=== PATIENT | male | born 1950 | race Caucasian/White ===

== ENCOUNTER 2020-03-17 14:48 | Outpatient (REF) | payer MEDICARE, SELFPAY ==
[2020-03-19 14:47] LABS: FIT Int Ctl YES; FIT1 POSITIVE (NEGATIVE); FIT2 POSITIVE (NEGATIVE)
== END 2020-03-17 14:49 | disposition home or self-care (01) ==
LOC: CF 14:48
PROVIDERS: Visit Provider Family Medicine
DX: D50.9 Iron deficiency anemia, unspecified (principal)
CPT/HCPCS: 82274

== ENCOUNTER 2020-04-22 19:24 | Emergency (ER) | payer MEDICARE, SELFPAY ==
[2020-04-22 19:41] VITALS: BP 109/55; BP 140/78; PULSE 74; PULSE 78; RESP 16; TEMP 36.5; O2SAT 97; O2SAT 98; BMI 30.9
--- NOTE | 2020-04-22 20:07 | XR_ITS ---
EXAMINATION: XR CHEST CLINICAL INFORMATION: Chest pain COMPARISON: 11/08/2019 TECHNIQUE: Frontal view of the chest was obtained. FINDINGS: Cardiac leads overlie the chest. The lungs are well expanded. There is no focal consolidation, edema, or effusion. No pneumothorax. The cardiomediastinal silhouette is within normal limits, with a calcified aorta. No acute osseous abnormality. XR/XR chest 1V IMPRESSION: No acute pulmonary findings.
--- NOTE | 2020-04-22 20:07 | ECG_ITS ---
Test Reason : CHEST PAIN Blood Pressure : / mmHG Vent. Rate : 071 BPM Atrial Rate : 071 BPM P-R Int : 268 ms QRS Dur : 084 ms QT Int : 446 ms P-R-T Axes : 049 -40 -14 degrees QTc Int : 484 ms Sinus rhythm with 1st degree A-V block Left axis deviation Low voltage QRS Inferior infarct , age undetermined Cannot rule out Anterior infarct (cited on or before 09-NOV-2019) Abnormal ECG When compared with ECG of 22-APR-2020 20:12, No significant change was found Referred By: Tyler Rogel Electronically Signed By:MARTA HANNA MD
[2020-04-22 20:55] LABS: Basophils Percent Auto 0.3 % (0-2); Eosinophils Percent Auto 3.4 % (0-4); MANUAL DIFF FLAG SCAN; Mean Corpuscular Volume 69.9 fL (80-98); Neutrophils Percent Auto 65.7 % (45-73); SCAN SMEAR FLAG 1
[2020-04-22 20:59] LABS: Eosinophils Absolute Auto 0.3 X10*3/uL (0.0-0.4); Hematocrit 34.1 % (42-52); Hemoglobin 10.1 g/dl (14.0-18.0); Imm Gran Abs Auto 0.05 X10*3/uL (0.00-0.03); Imm Gran Pct Auto 0.7 % (0.0-0.4); Lymphocytes Absolute Auto 1.6 X10*3/uL (1.2-4.9); Lymphocytes Percent Auto 21.1 % (20-40); Mean Corpuscular HGB Conc 29.6 g/dl (31.0-36.0); Mean Corpuscular Hemoglobin 20.7 pg (27.0-33.0); Monocytes Absolute Auto 0.7 X10*3/uL (0.1-1.2); Monocytes Percent Auto 8.8 % (2-11); Platelet Count 203 X10*3/uL (160-400); Red Blood Count 4.88 X10*6/uL (4.60-5.80); Red Cell Distribution Width 19.2 % (11.0-16.0); White Blood Count 7.5 X10*3/uL (4.8-10.8)
[2020-04-22 21:01] LABS: PLT ABN DIST 1
[2020-04-22 21:12] LABS: Anion Gap 19 (12-20); Blood Urea Nitrogen 61 mg/dL (9-16); Calcium 9.1 mg/dL (8.4-10.2); Carbon Dioxide 30 mmol/L (22-29); Chloride 97 mmol/L (96-108); Creatinine Clr Calc Pharmacy 29.1; Estimated Glomerular Filt Rate 27; Glucose Random 171 mg/dL (60-115); Potassium 5.1 mmol/l (3.3-5.1); Sodium 141 mmol/L (135-145)
[2020-04-22 21:17] LABS: SLIDE REVIEW VERIFIED
[2020-04-22 21:18] LABS: Troponin-I High Sensitivity 22.2 ng/L (<3.5-35.0)
--- NOTE | 2020-04-22 21:29 | ED_ITS ---
HPI - Chest Pain General Chief Complaint: Chest Pain Stated Complaint: anxiety Time Seen by Provider: 04/22/20 20:07 Source: patient Mode of arrival: EMS Limitations: no limitations History of Present Illness HPI narrative: Patient with significant cardiac history with history of GA on external cardiac defibrillator for last few months noticed pain on the right side sharp intermittent pain which happened before in the past now was happening more often for last 12 hours without any shortness of breath pain gets worse on deep inspiration and palpation patient very anxious also patient denies any left-sided chest pain no shortness of breath this pain is not similar to his previous heart attack patient. Patient denied any nausea/vomiting MD complaint: chest pain Pertinent past history: coronary artery disease and prior GA Onset (ago): hour(s) (12) Timing of current episode: episodic Prior episodes: Yes Onset: during rest Pain radiation: none Quality: sharp Relieving factors: nothing Exacerbating factors: inspiration, palpation and movement Related Data Previous Rx's Medication Instructions Recorded lorazepam [Ativan] 0.5 mg PO BEDTIME PRN #10 tab 04/22/20 Allergies Allergy/AdvReac Type Severity Reaction Status Date / Time No Known Allergies Allergy Unknown Unverified 02/05/20 16:17 Review of Systems Review of Systems: REVIEW OF SYSTEMS: Pertinent positives and negatives are stated above in the history. GEN: no fevers, chills, fatigue anxiety + HEENT: no nasal congestion, sore throat, ear pain NEURO: no headache, dizziness, focal weakness PULM: no cough, shortness of breath CV: no palpitations, LE edema ABD: no abdominal pain, nausea, vomiting, diarrhea : no dysuria, urgency, frequency SKIN: no rash ROS otherwise negative x 10 PMFSH Past Medical History Medical History Anemia Diabetes Myocardial infarct Social History Social History Alcohol intake: never Smoking Status: Never smoker Use of substances other than those prescribed or required for medical reasons: No Advance Directives: No Advance Directives Information Provided: Yes Physical Exam Vital Signs: Vital Signs: Last Vital Signs Temp 97.7 F 04/22/20 19:41 Pulse 74 04/22/20 19:41 Resp 16 04/22/20 19:41 BP 109/55 L 04/22/20 19:41 Pulse Ox 97 04/22/20 19:41 Body Mass Index 30.9 VITAL SIGNS: Reviewed. GENERAL: Well developed, well nourished, in no acute distress. Very anxious HEAD: Normocephalic/atraumatic, EYES: PERRLA No pallor/icterus noted OROPHARYNX: Oral mucosa moist no oral lesions NECK: Supple, no adenopathy LUNGS: Normal breath sounds. No adventitious sounds or accessory muscle use local tenderness right mid chest CARDIOVASCULAR: Regular rate and rhythm without noted murmurs, no JVD r external pacemaker in place No lower extremity edema. ABDOMEN: Soft, non-tender, non-distended with normal bowel sounds. No rigidity. No guarding. No palpable masses or hernias noted MUSCULOSKELETAL: No tenderness, deformities, EXTREMITIES: No cyanosis or edema. SKIN: no rashes, ulcerations, jaundice, pallor, NEUROLOGIC: Alert and oriented x 3. Strength and sensation to light touch were grossly intact normal speech MDM - Chest Pain MDM Narrative Medical decision making narrative: Patient atypical sharp right-sided chest pain reproducible by local palpation no cardiac arrhythmias noticed in the ER patient very anxious on arrival cardiac enzymes are stable no acute EKG changes will discharge patient home to be followed up with his primary care doctor/admitting counselor patient with chronic renal disease with stable creatinine Differential Diagnosis Differential diagnosis: Likely pneumothorax, unstable angina pectoris, atypical chest pain and costochondritis Medical Records Data Attestation: I reviewed the patient's medical records. Lab Data Attestation: I reviewed the patient's lab results. Result diagrams: 04/22/20 20:37 04/22/20 20:37 Labs: Lab Results 04/22/20 04/22/20 04/22/20 Range/Units 20:37 20:37 20:37 WBC 7.5 (4.8-10.8) X10*3/uL RBC 4.88 (4.60-5.80) X10*6/uL Hgb 10.1 L (14.0-18.0) g/dl Hct 34.1 L (42-52) % MCV 69.9 L (80-98) fL MCH 20.7 L (27.0-33.0) pg MCHC 29.6 L (31.0-36.0) g/dl RDW 19.2 H (11.0-16.0) % Plt Count 203 (160-400) X10*3/uL MPV TNP Immature Gran % (Auto) 0.7 H (0.0-0.4) % Neut % (Auto) 65.7 (45-73) % Lymph % (Auto) 21.1 (20-40) % [place] % (Auto) 8.8 (2-11) % Eos % (Auto) 3.4 (0-4) % Baso % (Auto) 0.3 (0-2) % Lymph # (Auto) 1.6 (1.2-4.9) X10*3/uL [place] # (Auto) 0.7 (0.1-1.2) X10*3/uL Eos # (Auto) 0.3 (0.0-0.4) X10*3/uL Baso # (Auto) 0.0 (0.0-0.2) X10*3/uL Abs Immat Gran (auto) 0.05 H (0.00-0.03) X10*3/uL Absolute Neuts (auto) 5.0 (2.0-8.3) X10*3/uL Absolute Nucleated RBC 0.000 (0.0-0.012) X10*3/uL Nucleated RBC % (auto) 0.0 (0.0-0.2) /100WBC Smear Tech's Comments VERIFIED Hold Blue Top SEE NOTE Sodium 141 (135-145) mmol/L Potassium 5.1 (3.3-5.1) mmol/l Chloride 97 (96-108) mmol/L Carbon Dioxide 30 H (22-29) mmol/L Anion Gap 19 (12-20) BUN 61 H (9-16) mg/dL Creatinine 2.42 H (0.5-1.4) mg/dL Estim Creat Clear Calc 29.1 Estimated GFR 27 Random Glucose 171 H (60-115) mg/dL Calcium 9.1 (8.4-10.2) mg/dL Troponin I High Sens (<3.5-35.0) ng/L 04/22/20 Range/Units 20:37 WBC (4.8-10.8) X10*3/uL RBC (4.60-5.80) X10*6/uL Hgb (14.0-18.0) g/dl Hct (42-52) % MCV (80-98) fL MCH (27.0-33.0) pg MCHC (31.0-36.0) g/dl RDW (11.0-16.0) % Plt Count (160-400) X10*3/uL MPV Immature Gran % (Auto) (0.0-0.4) % Neut % (Auto) (45-73) % Lymph % (Auto) (20-40) % [place] % (Auto) (2-11) % Eos % (Auto) (0-4) % Baso % (Auto) (0-2) % Lymph # (Auto) (1.2-4.9) X10*3/uL [place] # (Auto) (0.1-1.2) X10*3/uL Eos # (Auto) (0.0-0.4) X10*3/uL Baso # (Auto) (0.0-0.2) X10*3/uL Abs Immat Gran (auto) (0.00-0.03) X10*3/uL Absolute Neuts (auto) (2.0-8.3) X10*3/uL Absolute Nucleated RBC (0.0-0.012) X10*3/uL Nucleated RBC % (auto) (0.0-0.2) /100WBC Smear Tech's Comments Hold Blue Top Sodium (135-145) mmol/L Potassium (3.3-5.1) mmol/l Chloride (96-108) mmol/L Carbon Dioxide (22-29) mmol/L Anion Gap (12-20) BUN (9-16) mg/dL Creatinine (0.5-1.4) mg/dL Estim Creat Clear Calc Estimated GFR Random Glucose (60-115) mg/dL Calcium (8.4-10.2) mg/dL Troponin I High Sens 22.2 (<3.5-35.0) ng/L ECG Data ECG #1: Attestation: I personally reviewed and interpreted this ECG as follows: Interpretation: Normal sinus rhythm heart rate of 71 first-degree heart block P are interval increased to [address] T wave changes. 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
[2020-04-22] MEDS: LORazepam 1 MG TABLET PO (22:51)
== END 2020-04-22 23:00 | disposition home or self-care (01) ==
PROVIDERS: Emergency Provider Internal Medicine; PCP Family Medicine
DX: R07.9 Chest pain, unspecified (principal); F41.9 Anxiety disorder, unspecified; E11.9 Type 2 diabetes mellitus without complications; I25.2 Old myocardial infarction
CPT/HCPCS: 36415; 71045; 80048; 84484; 85025; 93005; 99284

== ENCOUNTER 2020-08-25 09:14 | Emergency (ER) | payer MEDICARE, SELFPAY ==
[2020-08-25 09:18] VITALS: BP 135/67; BP 141/92; PULSE 78; PULSE 80; RESP 18; TEMP 37; O2SAT 98; BMI 31.6
--- NOTE | 2020-08-25 09:22 | ECG_ITS ---
Test Reason : OVERDOSE Blood Pressure : / mmHG Vent. Rate : 079 BPM Atrial Rate : 079 BPM P-R Int : 292 ms QRS Dur : 096 ms QT Int : 412 ms P-R-T Axes : 074 -46 002 degrees QTc Int : 472 ms Sinus rhythm with 1st degree A-V block Left axis deviation Low voltage QRS Inferior infarct (cited on or before 09-NOV-2019) Abnormal ECG When compared with ECG of 22-APR-2020 20:12, Minimal criteria for Anterior infarct are no longer Present Referred By: Savannah Dickens Electronically Signed By:MARTA HANNA MD
[2020-08-25 10:05] LABS: MANUAL DIFF FLAG NO
[2020-08-25 10:06] LABS: Basophils Percent Auto 0.2 % (0-2); Eosinophils Absolute Auto 0.2 X10*3/uL (0.0-0.4); Eosinophils Percent Auto 2.7 % (0-4); Hematocrit 39.5 % (42-52); Hemoglobin 11.7 g/dl (14.0-18.0); Imm Gran Abs Auto 0.01 X10*3/uL (0.00-0.03); Imm Gran Pct Auto 0.2 % (0.0-0.4); Lymphocytes Absolute Auto 0.9 X10*3/uL (1.2-4.9); Lymphocytes Percent Auto 13.8 % (20-40); Mean Corpuscular HGB Conc 29.6 g/dl (31.0-36.0); Mean Corpuscular Hemoglobin 21.2 pg (27.0-33.0); Mean Corpuscular Volume 71.7 fL (80-98); Mean Platelet Volume 9.7 fL (9.4-12.4); Monocytes Absolute Auto 0.4 X10*3/uL (0.1-1.2); Monocytes Percent Auto 5.3 % (2-11); Neutrophils Absolute Auto 5.2 X10*3/uL (2.0-8.3); Neutrophils Percent Auto 77.8 % (45-73); Platelet Count 159 X10*3/uL (160-400); Red Blood Count 5.51 X10*6/uL (4.60-5.80); Red Cell Distribution Width 16.1 % (11.0-16.0); White Blood Count 6.6 X10*3/uL (4.8-10.8)
[2020-08-25 10:11] LABS: INTERNATIONAL NORM RATIO 1.2 (0.9-1.1); Prothrombin Time 14.4 SEC (10.8-13.0)
[2020-08-25 10:33] VITALS: BP 141/74; PULSE 78; RESP 18; O2SAT 97
[2020-08-25 10:33] LABS: Ethanol < 10 mg/dL
[2020-08-25 10:39] LABS: Acetone, serum QL Negative (Negative)
[2020-08-25 10:52] LABS: Alanine Aminotransferase 17 U/L (0-40); Albumin Level 4.2 g/dL (3.5-5.0); Alkaline Phosphatase 130 U/L (39-117); Anion Gap 14 (12-20); Aspartate Amino Transferase 19 U/L (5-37); Bilirubin Direct < 0.2 mg/dL (0.0-0.5); Bilirubin Total 0.2 mg/dL (0.0-1.0); Carbon Dioxide 30 mmol/L (22-29); Chloride 102 mmol/L (96-108); Creatinine Clr Calc Pharmacy 30.4; Estimated Glomerular Filt Rate 28; Glucose Random 186 mg/dL (60-115); Potassium 4.6 mmol/L (3.3-5.1); Sodium 141 mmol/L (135-145); Total Protein 7.3 g/dL (6.5-8.0)
[2020-08-25 10:55] LABS: Blood Urea Nitrogen 48 mg/dL (9-16); Calcium 9.5 mg/dL (8.4-10.2)
--- NOTE | 2020-08-25 11:49 | ED.OVERDOSE ---
HPI - Overdose General Chief Complaint: Overdose Stated Complaint: ACCIDENTAL OD OF HUMABIODUN @ 0830 THIS AM Time Seen by Provider: 08/25/20 09:19 Source: patient Mode of arrival: ambulatory Limitations: no limitations History of Present Illness HPI Narrative: 70-year-old male with a past medical history of coronary artery disease, myocardial infarction, hypothyroidism, anemia and diabetes currently on short-acting Glargine and long-acting Lispro insulin presenting to the ED after accidental overdose with his short-acting Lispro insulin that occurred prior to arrival. He reports that his blood sugar was in the 200s and he was supposed to take 4-6 units from the sliding-scale of Lispro instead he reports he took 51 units. Then he realized that he took the wrong insulin and called EMS. When EMS arrived the patient's blood glucose level was 290. When patient arrived here in the emergency department the patient's blood glucose was 229. Patient denies any other symptoms complaints or concerns at this time. Denies any SI/HI/auditory visual hallucinations or thoughts of self injury. MD complaint: accidental overdose Onset (ago): minute(s) (Prior to arrival) Related Data Previous Rx's Medication Instructions Recorded lorazepam [Ativan] 0.5 mg PO BEDTIME PRN #10 tab 04/22/20 Allergies Allergy/AdvReac Type Severity Reaction Status Date / Time No Known Allergies Allergy Unknown Unverified 02/05/20 16:17 Review of Systems Review of Systems: Constitutional : No Fever, No Chills ENT/Mouth : No Ear Pain, No Nasal Congestion, No sore throat Eyes: No Eye Pain, No Swelling, No Redness Cardiovascular : No Chest Pain, No SOB Respiratory : No Cough, No Sputum, No Dyspnea Gastrointestinal : No ingestions, No Nausea, No Vomiting, No Diarrhea, No Hematochezia, No Melena Genitourinary : No Dysuria, No Urinary Frequency, No Hematuria Musculoskeletal : No Myalgias Skin : No Skin Lesions, No rash Neuro : No Weakness, No Numbness, No Paresthesias, No Dizziness, No Headache Psych : No Anxiety, No Depression, No SI, No No thoughts of self injury, No HI, No AVH, Heme/Lymph: No Lymphadenopathy Endocrine : No Polyuria, No Polydipsia Yes all other systems are reviewed and are negative [facility] Past Medical History Attestation statement: The following information was validated with the patient. Medical History Anemia Diabetes Myocardial infarct Social History Social History Alcohol intake: never Smoking Status: Former smoker Smoked in Last 30 Days: No Use of substances other than those prescribed or required for medical reasons: No Advance Directives: Yes Advance Directives Information Provided: Yes Advance Directives on File: No Physical Exam Vital Signs: Vital Signs: Last Vital Signs Temp 98.6 F 08/25/20 09:18 Pulse 78 08/25/20 10:33 Resp 18 08/25/20 10:33 BP 141/74 H 08/25/20 10:33 Pulse Ox 97 08/25/20 10:33 Body Mass Index 31.6 vital signs have been reviewed as normal and appeared to be correct. Blood pressure hypertensive 141/74. Heart rate normal. Respiration rate normal. Temperature normal. Oxygen saturation normal. Appearance: Alert. Oriented X3. No acute distress. Head: Normal external exam. Normocephalic. Atraumatic. No [place] signs noted. No raccoon eyes noted Eyes: PERRLA. EOMI. Conjunctiva and sclera normal. Eyelids normal. ENT: EAC normal. TM's Normal. Pharynx normal. Uvula midline. Moist mucous membranes. No trismus noted. No drooling noted. No muffled voice noted. Neck: Normal inspection. Neck supple. FROM. No adenopathy. Thyroid Normal. No meningeal signs. No neck mass noted. CVS: Normal heart rate and rhythm. Heart sound normal. No murmurs noted. Pulses normal throughout. Respiratory: No respiratory distress. Painless inspiration. Breath sounds normal. No wheezes/rales/rhonchi noted. Chest nontender. No accessory muscle usage noted or decreased air movement noted. Abdomen: Soft and nontender. Bowel sounds normal in all 4 quadrants. No distention noted. No organomegaly noted. No visible injury noted. Back: No CVA tenderness. Full range of motion noted. Skin: Skin warm and dry. Normal skin color. Normal skin turgor. No rashes/lesions/lacerations noted. Extremities: No lower extremity edema. Extremities exhibit normal range of motion. Extremities nontender. Neuro: Oriented X 3. No motor deficit. No sensory deficit. Reflexes normal. Psych: Appearance grossly normal, well-kept, mental status normal, speech and movement normal, speech clear, patient has a normal affect. Is cooperative. Normal thought process. Normal thought content. Normal good insight. Judgment good. Course Course Course Narrative: 9:25am 70-year-old male with a past medical history of diabetes currently on short-acting Glargine and long-acting Lispro insulin presenting to the ED after accidental overdose with his short-acting Lispro insulin that occurred prior to arrival. He took 51 units instead of 4-6 units. Denies taking the long-acting insulin Lispro. Denies any SI/HI/auditory visual hallucinations thoughts of self-injury. - on exam patient is alert and oriented x3. Not in any acute distress. Vital signs are stable within normal limits. No focal neuro deficits are noted. Lungs clear to auscultation. CV RRR. Abdomen soft and nontender. No lower extremity pitting edema or calf tenderness noted. - Plan: Labs, then checked the patient's blood glucose every 30 minutes to an hour for approximately 6 hours and treat as needed. Reevaluation(s) Reevaluation #1: - patient's blood glucose has been fluctuating since he has been here we have been giving him p.o. orange juice/sandwiches. - otherwise labs obtained and patient with a mild baseline anemia similar compared to prior. Elevated BUN and creatinine which is similar when compared to prior. Alkaline phosphate 130. Otherwise all other labs are within normal limits. - patient requesting all his medications from home he brought his list therefore ordered at this time. - will continue to monitor until approximately 15:00pm. - patient understands agrees with this plan. Time: 12:34 Reevaluation #2: - blood glucose at this time is 121. Patient has been eating well. It has been 6 hours or longer since the patient took his short-acting insulin therefore at this time it is safe to discharge the patient I instructed patient to return if any new or worsening symptoms to follow up with primary care provider. Patient understands agrees the plan. Time: 14:33 MDM - Overdose Medical Records Attestation: I reviewed the patient's medical records. Lab Data Attestation: I reviewed the patient's lab results. Result diagrams: 08/25/20 10:00 08/25/20 10:00 Labs: Lab Results 08/25/20 08/25/20 08/25/20 Range/Units 09:19 09:44 10:00 WBC 6.6 (4.8-10.8) X10*3/uL RBC 5.51 (4.60-5.80) X10*6/uL Hgb 11.7 L (14.0-18.0) g/dl Hct 39.5 L (42-52) % MCV 71.7 L (80-98) fL MCH 21.2 L (27.0-33.0) pg MCHC 29.6 L (31.0-36.0) g/dl RDW 16.1 H (11.0-16.0) % Plt Count 159 L (160-400) X10*3/uL MPV 9.7 (9.4-12.4) fL Immature Gran % (Auto) 0.2 (0.0-0.4) % Neut % (Auto) 77.8 H (45-73) % Lymph % (Auto) 13.8 L (20-40) % [place] % (Auto) 5.3 (2-11) % Eos % (Auto) 2.7 (0-4) % Baso % (Auto) 0.2 (0-2) % Lymph # (Auto) 0.9 L (1.2-4.9) X10*3/uL [place] # (Auto) 0.4 (0.1-1.2) X10*3/uL Eos # (Auto) 0.2 (0.0-0.4) X10*3/uL Baso # (Auto) 0.0 (0.0-0.2) X10*3/uL Abs Immat Gran (auto) 0.01 (0.00-0.03) X10*3/uL Absolute Neuts (auto) 5.2 (2.0-8.3) X10*3/uL Absolute Nucleated RBC 0.000 (0.0-0.012) X10*3/uL Nucleated RBC % (auto) 0.0 (0.0-0.2) /100WBC Hold Purple Top PT (10.8-13.0) SEC INR (0.9-1.1) Sodium (135-145) mmol/L Potassium (3.3-5.1) mmol/L Chloride (96-108) mmol/L Carbon Dioxide (22-29) mmol/L Anion Gap (12-20) BUN (9-16) mg/dL Creatinine (0.5-1.4) mg/dL Estim Creat Clear Calc Estimated GFR POC Glucose 229 H 384 H* (60-115) mg/dL Random Glucose (60-115) mg/dL Calcium (8.4-10.2) mg/dL Magnesium (1.6-2.6) mg/dL Total Bilirubin (0.0-1.0) mg/dL Direct Bilirubin (0.0-0.5) mg/dL AST (5-37) U/L ALT (0-40) U/L Alkaline Phosphatase (39-117) U/L Total Protein (6.5-8.0) g/dL Albumin (3.5-5.0) g/dL Ethyl Alcohol mg/dL Acetone, Qual (Negative) 08/25/20 08/25/20 08/25/20 Range/Units 10:00 10:00 10:00 WBC (4.8-10.8) X10*3/uL RBC (4.60-5.80) X10*6/uL Hgb (14.0-18.0) g/dl Hct (42-52) % MCV (80-98) fL MCH (27.0-33.0) pg MCHC (31.0-36.0) g/dl RDW (11.0-16.0) % Plt Count (160-400) X10*3/uL MPV (9.4-12.4) fL Immature Gran % (Auto) (0.0-0.4) % Neut % (Auto) (45-73) % Lymph % (Auto) (20-40) % [place] % (Auto) (2-11) % Eos % (Auto) (0-4) % Baso % (Auto) (0-2) % Lymph # (Auto) (1.2-4.9) X10*3/uL [place] # (Auto) (0.1-1.2) X10*3/uL Eos # (Auto) (0.0-0.4) X10*3/uL Baso # (Auto) (0.0-0.2) X10*3/uL Abs Immat Gran (auto) (0.00-0.03) X10*3/uL Absolute Neuts (auto) (2.0-8.3) X10*3/uL Absolute Nucleated RBC (0.0-0.012) X10*3/uL Nucleated RBC % (auto) (0.0-0.2) /100WBC Hold Purple Top SEE NOTE PT 14.4 H (10.8-13.0) SEC INR 1.2 H (0.9-1.1) Sodium 141 (135-145) mmol/L Potassium 4.6 (3.3-5.1) mmol/L Chloride 102 (96-108) mmol/L Carbon Dioxide 30 H (22-29) mmol/L Anion Gap 14 (12-20) BUN 48 H (9-16) mg/dL Creatinine 2.31 H (0.5-1.4) mg/dL Estim Creat Clear Calc 30.4 Estimated GFR 28 POC Glucose (60-115) mg/dL Random Glucose 186 H (60-115) mg/dL Calcium 9.5 (8.4-10.2) mg/dL Magnesium 2.0 (1.6-2.6) mg/dL Total Bilirubin 0.2 (0.0-1.0) mg/dL Direct Bilirubin < 0.2 (0.0-0.5) mg/dL AST 19 (5-37) U/L ALT 17 (0-40) U/L Alkaline Phosphatase 130 H (39-117) U/L Total Protein 7.3 (6.5-8.0) g/dL Albumin 4.2 (3.5-5.0) g/dL Ethyl Alcohol mg/dL Acetone, Qual Negative (Negative) 08/25/20 08/25/20 08/25/20 Range/Units 10:00 10:27 11:01 WBC (4.8-10.8) X10*3/uL RBC (4.60-5.80) X10*6/uL Hgb (14.0-18.0) g/dl Hct (42-52) % MCV (80-98) fL MCH (27.0-33.0) pg MCHC (31.0-36.0) g/dl RDW (11.0-16.0) % Plt Count (160-400) X10*3/uL MPV (9.4-12.4) fL Immature Gran % (Auto) (0.0-0.4) % Neut % (Auto) (45-73) % Lymph % (Auto) (20-40) % [place] % (Auto) (2-11) % Eos % (Auto) (0-4) % Baso % (Auto) (0-2) % Lymph # (Auto) (1.2-4.9) X10*3/uL [place] # (Auto) (0.1-1.2) X10*3/uL Eos # (Auto) (0.0-0.4) X10*3/uL Baso # (Auto) (0.0-0.2) X10*3/uL Abs Immat Gran (auto) (0.00-0.03) X10*3/uL Absolute Neuts (auto) (2.0-8.3) X10*3/uL Absolute Nucleated RBC (0.0-0.012) X10*3/uL Nucleated RBC % (auto) (0.0-0.2) /100WBC Hold Purple Top PT (10.8-13.0) SEC INR (0.9-1.1) Sodium (135-145) mmol/L Potassium (3.3-5.1) mmol/L Chloride (96-108) mmol/L Carbon Dioxide (22-29) mmol/L Anion Gap (12-20) BUN (9-16) mg/dL Creatinine (0.5-1.4) mg/dL Estim Creat Clear Calc Estimated GFR POC Glucose 193 H 130 H (60-115) mg/dL Random Glucose (60-115) mg/dL Calcium (8.4-10.2) mg/dL Magnesium (1.6-2.6) mg/dL Total Bilirubin (0.0-1.0) mg/dL Direct Bilirubin (0.0-0.5) mg/dL AST (5-37) U/L ALT (0-40) U/L Alkaline Phosphatase (39-117) U/L Total Protein (6.5-8.0) g/dL Albumin (3.5-5.0) g/dL Ethyl Alcohol < 10 mg/dL Acetone, Qual (Negative) 08/25/20 08/25/20 08/25/20 Range/Units 12:46 13:16 13:54 WBC (4.8-10.8) X10*3/uL RBC (4.60-5.80) X10*6/uL Hgb (14.0-18.0) g/dl Hct (42-52) % MCV (80-98) fL MCH (27.0-33.0) pg MCHC (31.0-36.0) g/dl RDW (11.0-16.0) % Plt Count (160-400) X10*3/uL MPV (9.4-12.4) fL Immature Gran % (Auto) (0.0-0.4) % Neut % (Auto) (45-73) % Lymph % (Auto) (20-40) % [place] % (Auto) (2-11) % Eos % (Auto) (0-4) % Baso % (Auto) (0-2) % Lymph # (Auto) (1.2-4.9) X10*3/uL [place] # (Auto) (0.1-1.2) X10*3/uL Eos # (Auto) (0.0-0.4) X10*3/uL Baso # (Auto) (0.0-0.2) X10*3/uL Abs Immat Gran (auto) (0.00-0.03) X10*3/uL Absolute Neuts (auto) (2.0-8.3) X10*3/uL Absolute Nucleated RBC (0.0-0.012) X10*3/uL Nucleated RBC % (auto) (0.0-0.2) /100WBC Hold Purple Top PT (10.8-13.0) SEC INR (0.9-1.1) Sodium (135-145) mmol/L Potassium (3.3-5.1) mmol/L Chloride (96-108) mmol/L Carbon Dioxide (22-29) mmol/L Anion Gap (12-20) BUN (9-16) mg/dL Creatinine (0.5-1.4) mg/dL Estim Creat Clear Calc Estimated GFR POC Glucose 88 97 121 H (60-115) mg/dL Random Glucose (60-115) mg/dL Calcium (8.4-10.2) mg/dL Magnesium (1.6-2.6) mg/dL Total Bilirubin (0.0-1.0) mg/dL Direct Bilirubin (0.0-0.5) mg/dL AST (5-37) U/L ALT (0-40) U/L Alkaline Phosphatase (39-117) U/L Total Protein (6.5-8.0) g/dL Albumin (3.5-5.0) g/dL Ethyl Alcohol mg/dL Acetone, Qual (Negative) ECG Data Attestation: I personally reviewed and interpreted this ECG as follows: ECG interpretation date: 08/25/20 ECG interpretation time: 09:19 Interpretation: Sinus rhythm with 1st degree AV block with a ventricular rate of 79 with left axis deviation with Q-waves noted in III/aVF/V1 otherwise no acute ischemic changes noted. Similar compared to prior EKG on 04/22/2020 Critical Care Time Critical Care Time Critical Care Time: Yes Total Critical Care Time: 60 Attestation: I personally attest to this time spent taking care of the patient Discharge Plan Discharge Clinical Impression: Overdose of insulin, Accidental overdose Patient Disposition: Home, Self-Care Instructions: Hypoglycemia in a Person with Diabetes (ED), Medication Safety for Older Adults (ED) Prescriptions: No Action lorazepam [Ativan] 0.5 mg tablet 0.5 mg PO BEDTIME PRN (Reason: anxiety) Qty: 10 RF: 0 Referrals: Juana Meraz MD [Primary Care Provider] - 2 days Print Language: Russian
[2020-08-25] MEDS: Isosorbide Mononitrate 30 MG TAB.ER.24H PO (12:38)
[2020-08-25] MEDS: Torsemide 20 MG TABLET 30 MG PO (12:38)
[2020-08-25] MEDS: Clopidogrel Bisulfate 75 MG TABLET PO (12:38)
[2020-08-25] MEDS: Aspirin 81 MG TAB.CHEW PO (12:38)
[2020-08-25] MEDS: Omeprazole 20 MG CAPSULE.DR PO (12:38)
[2020-08-25] MEDS: clonazePAM 0.5 MG TABLET PO (12:38)
[2020-08-25] MEDS: Thiamine HCL 100 MG TABLET PO (12:39)
[2020-08-25] MEDS: hydrALAZINE HCl 10 MG TABLET PO (12:39)
[2020-08-25] MEDS: Levothyroxine Sodium 88 MCG TABLET PO (12:40)
[2020-08-25] MEDS: Folic Acid 1 MG TABLET PO (12:40)
[2020-08-25] MEDS: Gabapentin 100 MG CAPSULE PO (12:40)
[2020-08-25] MEDS: carvediloL 12.5 MG TABLET PO (12:41)
[2020-08-25] MEDS: Ferrous Sulfate 324 MG TABLET.DR PO (12:41)
[2020-08-25 13:58] LABS: Glucose, Whole Blood 97 mg/dL (60-115)
[2020-08-25 13:58] LABS: Glucose, Whole Blood 121 mg/dL (60-115)
[2020-08-25 13:58] LABS: Glucose, Whole Blood 229 mg/dL (60-115)
[2020-08-25 13:58] LABS: Glucose, Whole Blood 193 mg/dL (60-115)
[2020-08-25 13:58] LABS: Glucose, Whole Blood 88 mg/dL (60-115)
[2020-08-25 13:58] LABS: Glucose, Whole Blood 130 mg/dL (60-115)
[2020-08-25 13:58] LABS: Glucose, Whole Blood 384 mg/dL (60-115)
== END 2020-08-25 15:04 | disposition home or self-care (01) ==
PROVIDERS: Physician Assistant Medical; Emergency Provider Emergency Medicine Emergency Medical Services; PCP Family Medicine
DX: T38.3X1A Poisoning by insulin and oral hypoglycemic [antidiabetic] drugs, accidental (unintentional), initial encounter (principal); Y92.9 Unspecified place or not applicable; Z79.4 Long term (current) use of insulin; Z79.899 Other long term (current) drug therapy; Z87.891 Personal history of nicotine dependence
CPT/HCPCS: 36415; 80048; 80076; 80320; 82009; 82947; 83735; 85025; 85610; 93005; 99285; 99291

== ENCOUNTER 2021-06-05 09:21 | Emergency (ER) | payer MEDICARE, SELFPAY ==
[2021-05-24 07:31] VITALS: BMI 34.9
--- NOTE | 2021-06-05 | ECG_ITS ---
Test Reason : dyspnea Blood Pressure : / mmHG Vent. Rate : 074 BPM Atrial Rate : 074 BPM P-R Int : 282 ms QRS Dur : 076 ms QT Int : 400 ms P-R-T Axes : 051 -23 006 degrees QTc Int : 444 ms Sinus rhythm with 1st degree A-V block Low voltage QRS Inferior infarct (cited on or before 22-APR-2020) Cannot rule out Anterior infarct , age undetermined Abnormal ECG When compared with ECG of 25-AUG-2020 09:19, Nonspecific T wave abnormality now evident in Lateral leads Referred By: Generic ED Physician Electronically Signed By:Satya Strange
--- NOTE | ~2021-06-05 | XR_ITS ---
EXAMINATION: XR CHEST CLINICAL INFORMATION: Cough. Chest wall pain. COMPARISON: Chest x-rays of 04/22/2020, 11/08/2019, 03/08/2020. Chest CT of 11/08/2019. TECHNIQUE: 2 views of the chest were obtained. FINDINGS: A single lead left-sided AICD/pacemaker is in place with the intact-appearing pacer lead terminating in the expected location of the right ventricle, the finding is new compared to previous study. Also radiopaque small tubular density is noted along the left cardiac border in the hilar region, this finding is also new compared to previous study. Recommend clinical correlation for interval pulmonary vascular procedures. The cardiomediastinal silhouette is unchanged with normal cardiac size. The lungs are adequately well expanded. No focal consolidation, changes of congestion or pleural effusions are seen. No pneumothorax. No acute osseous abnormality. Changes of diffuse idiopathic skeletal hyperostosis in the thoracic spine are again noted. XR/XR chest 2V IMPRESSION: No convincing radiographic evidence of pneumonia. No acute pulmonary process.
[2021-06-05 09:39] VITALS: BP 104/36; PULSE 78; RESP 18; TEMP 36.1; O2SAT 94; BMI 33.9
--- NOTE | 2021-06-05 11:13 | ED.SOB ---
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 He reports worsening flu symptoms over the last 3 days. [facility] was [facility] week when he noticed he was more SOB with the exercises than normal. He reports body aches, runny nose, nausea, vomiting x1 a few days ago. He took a COVID test at home last night that was positive. He is fully vaccinated and booster with [employer] vaccines. No known exposures that he can recall. He denies chest pain but reports pain in his ribs from coughing fits. No phlegm production. MD elicited complaint: shortness of breath Pertinent past history: congestive heart failure and diabetes Onset (ago): day(s) (-) Context: recent illness Timing: constant Severity: moderate Exacerbating factors: exertion Relieving factors: nothing Known history of: congestive heart failure Associated symptoms: cough, nausea/vomiting and chest congestion Treatment prior to arrival: none Related Data Home oxygen amount: none Home Medications Medication Instructions Recorded Confirmed bupropion HCl 150 mg 24 hr tablet, 1 tab PO QAM 06/05/21 06/05/21 extended release carvedilol 12.5 mg tablet 1 tab PO BID 06/05/21 06/05/21 clonazepam 0.5 mg tablet 1 tab PO BID PRN 06/05/21 06/05/21 clopidogrel 75 mg tablet 1 tab PO DAILY 06/05/21 06/05/21 folic acid 1 mg tablet 1 tab PO DAILY 06/05/21 06/05/21 gabapentin 100 mg capsule 300 mg PO BID 06/05/21 06/05/21 hydralazine 25 mg tablet 12.5 mg PO TID 06/05/21 06/05/21 insulin glargine 100 unit/mL (3 72 unit SUBCUT DAILY 06/05/21 06/05/21 mL) subcutaneous pen (Lantus Solostar U-100 Insulin) insulin lispro 100 unit/mL See Rx Instructions .ROUTE .COMPLEX 06/05/21 06/05/21 subcutaneous pen (Humalog KwikPen (U-100) Insulin) isosorbide mononitrate 60 mg 1 tab PO DAILY 06/05/21 06/05/21 tablet,extended release 24 hr levothyroxine 100 mcg tablet 1 tab PO DAILY 06/05/21 06/05/21 pantoprazole 40 mg tablet,delayed 1 tab PO BID 06/05/21 06/05/21 release potassium chloride 20 mEq 1 tab PO BID 06/05/21 06/05/21 tablet,extended release pramipexole 0.375 mg 0.375 mg PO DAILY 06/05/21 06/05/21 tablet,extended release 24 hr rosuvastatin 40 mg tablet 1 tab PO DAILY 06/05/21 06/05/21 sitagliptin 25 mg tablet (Januvia) 1 tab PO DAILY 06/05/21 06/05/21 thiamine HCl (vitamin B1) 100 mg 1 tab PO DAILY 06/05/21 06/05/21 tablet (Vitamin B-1) torsemide 20 mg tablet 1 tab PO BID 06/05/21 06/05/21 Allergies Allergy/AdvReac Type Severity Reaction Status Date / Time No Known Allergies Allergy Unknown Unverified 02/05/20 16:17 Review of Systems Review of Systems: Constitutional: No Fever, No Chills ENT/Mouth: No sore throat, + Rhinorrhea, No Swallowing Difficulty Eyes: No Eye Pain, No Swelling, No Redness Cardiovascular: No Chest Pain, + SOB, No Orthopnea, No Edema Respiratory: + Cough, No Sputum, No Wheezing, No dyspnea Gastrointestinal: + Nausea, + Vomiting, No Diarrhea, +Constipation, No abdominal Pain Genitourinary: No Dysuria, No Urinary Frequency, No Hematuria Musculoskeletal: No joint pain, + Myalgias Skin: No Skin Lesions, No rash Neuro: + Weakness, No Numbness, No Dizziness, + Headache Psych: No Anxiety/Panic, No Depression Heme/Lymph: No Bruising, No Lymphadenopathy PMFSH Past Medical History Medical History Anemia Diabetes Myocardial infarct Social History Social History Alcohol intake: never Patient Tobacco Use Status: Former Tobacco user Tobacco use type: Cigarette Cigarette Packs Per Day: 0.5 Years Smoked: 10 Advance Directives: No Advance Directives Information Provided: No Physical Exam Vital Signs: Vital Signs: Last Vital Signs Temp 97 F 06/05/21 09:39 Pulse 78 06/05/21 09:39 Resp 18 06/05/21 09:39 BP 104/36 L 06/05/21 09:39 Pulse Ox 94 06/05/21 09:39 BMI result Body Mass Index 33.9 Appearance: Alert. Oriented X3. No acute distress. Eyes: Pupils equal, round and reactive to light. ENT: Pharynx normal. Neck: Normal inspection. Neck supple. CVS: Normal heart rate and rhythm. Pulses normal. AICD/PPM palpable in left upper chest wall Respiratory: No respiratory distress. Breath sounds diminished at bilateral bases. Abdomen: Softly distended and nontender. +BS x4 Skin: Skin warm and dry. Normal skin color. Normal skin turgor. No rashes. Extremities: No lower extremity edema. Neuro: Oriented X 3. No motor deficit. No sensory deficit. ambulates with steady gait, no respiratory distress. Course Course Course Narrative: 71-year-old male with a history of ME x2, diabetes, depression, hypothyroidism, alcohol abuse in the past who presents to the ER with home COVID test positive with symptoms of cough, shortness of breath and chest discomfort. Given his cardiac history will need to rule out cardiac ischemia, pneumonia, PE. EKG and labs ordered. COVID ordered to confirm. He is fully vaccinated x3. VS are normal with SpO2 100% and clear lungs on exam, no distress. Anticipate d/c home. Reevaluation(s) Reevaluation #1: Chest x-ray shows no evidence of COVID pneumonia. His BNP slightly elevated he does not appear volume overloaded. His troponin is 15 with No ischemic changes on his EKG. His baseline troponin appears to be around 20. When he had a an acute coronary event back in 2019 his troponin was 33,000. Doubt any cardiac ischemia at this time. His chest discomfort is with coughing and is reproducible on examination. At this time is stable for discharge home with supportive care for his COVID-19. We discussed getting a pulse oximeter for home for monitoring of his saturations. His son will be able to check on him frequently. He will follow-up with his primary care doctor this week. Strict return precautions were discussed. MDM - SOB/Dyspnea Lab Data Result diagrams: 06/05/21 13:51 06/05/21 13:51 Labs: Lab Results 06/05/21 06/05/21 06/05/21 Range/Units 13:51 13:51 13:51 WBC 6.1 (4.8-10.8) X10*3/uL RBC 5.12 (4.60-5.80) X10*6/uL Hgb 10.5 L (14.0-18.0) g/dl Hct 35.9 L (42.0-52.0) % MCV 70.1 L (80.0-98.0) fL MCH 20.5 L (27.0-33.0) pg MCHC 29.2 L (31.0-36.0) g/dl RDW 18.0 H (11.0-16.0) % Plt Count 220 (160-400) X10*3/uL MPV 10.3 (9.4-12.4) fL Immature Gran % (Auto) 0.3 (0.0-0.4) % Neut % (Auto) 68.7 (45-73) % Lymph % (Auto) 17.2 L (20-40) % Runnels % (Auto) 10.9 (2-11) % Eos % (Auto) 2.6 (0-4) % Baso % (Auto) 0.3 (0-2) % Lymph # (Auto) 1.0 L (1.2-4.9) X10*3/uL Runnels # (Auto) 0.7 (0.1-1.2) X10*3/uL Eos # (Auto) 0.2 (0.0-0.4) X10*3/uL Baso # (Auto) 0.0 (0.0-0.2) X10*3/uL Abs Immat Gran (auto) 0.02 (0.00-0.03) X10*3/uL Absolute Neuts (auto) 4.2 (2.0-8.3) x10*3/uL Absolute Nucleated RBC 0.000 (0.0-0.012) X10*3/uL Nucleated RBC % (auto) 0.0 (0.0-0.2) /100WBC PT 14.1 H (9.9-13.0) SEC INR 1.2 H (0.9-1.1) APTT 33.0 (24.1-38.0) SEC D-Dimer High Sensitivty 216 NG/ML Sodium 138 (135-145) mmol/L Potassium 5.0 (3.3-5.1) mmol/L Chloride 100 (96-108) mmol/L Carbon Dioxide 29 (22-29) mmol/L Anion Gap 14 (12-20) BUN 33 H (9-16) mg/dL Creatinine 2.22 H (0.5-1.4) mg/dL Estim Creat Clear Calc 32.3 Estimated GFR 29 POC Glucose (60-115) mg/dL Random Glucose 247 H (60-115) mg/dL Calcium 9.2 (8.4-10.2) mg/dL Magnesium 1.9 (1.6-2.6) mg/dL Ferritin 130 (20-250) ng/mL Total Bilirubin 0.2 (0.0-1.0) mg/dL Direct Bilirubin < 0.2 (0.0-0.5) mg/dL AST 22 (5-37) U/L ALT 17 (0-40) U/L Alkaline Phosphatase 92 D (39-117) U/L Troponin I High Sens (<3.5-35.0) ng/L C-Reactive Protein 2.58 H (< or = 0.50) mg/dL B-Natriuretic Peptide (<100) pg/mL Total Protein 7.5 (6.5-8.0) g/dL Albumin 3.9 (3.5-5.0) g/dL Procalcitonin ng/mL COVID-19 (DEE) (Negative) COVID-19 Clin Com 06/05/21 06/05/21 06/05/21 Range/Units 13:51 13:51 13:51 WBC (4.8-10.8) X10*3/uL RBC (4.60-5.80) X10*6/uL Hgb (14.0-18.0) g/dl Hct (42.0-52.0) % MCV (80.0-98.0) fL MCH (27.0-33.0) pg MCHC (31.0-36.0) g/dl RDW (11.0-16.0) % Plt Count (160-400) X10*3/uL MPV (9.4-12.4) fL Immature Gran % (Auto) (0.0-0.4) % Neut % (Auto) (45-73) % Lymph % (Auto) (20-40) % Runnels % (Auto) (2-11) % Eos % (Auto) (0-4) % Baso % (Auto) (0-2) % Lymph # (Auto) (1.2-4.9) X10*3/uL Runnels # (Auto) (0.1-1.2) X10*3/uL Eos # (Auto) (0.0-0.4) X10*3/uL Baso # (Auto) (0.0-0.2) X10*3/uL Abs Immat Gran (auto) (0.00-0.03) X10*3/uL Absolute Neuts (auto) (2.0-8.3) x10*3/uL Absolute Nucleated RBC (0.0-0.012) X10*3/uL Nucleated RBC % (auto) (0.0-0.2) /100WBC PT (9.9-13.0) SEC INR (0.9-1.1) APTT (24.1-38.0) SEC D-Dimer High Sensitivty NG/ML Sodium (135-145) mmol/L Potassium (3.3-5.1) mmol/L Chloride (96-108) mmol/L Carbon Dioxide (22-29) mmol/L Anion Gap (12-20) BUN (9-16) mg/dL Creatinine (0.5-1.4) mg/dL Estim Creat Clear Calc Estimated GFR POC Glucose (60-115) mg/dL Random Glucose (60-115) mg/dL Calcium (8.4-10.2) mg/dL Magnesium (1.6-2.6) mg/dL Ferritin (20-250) ng/mL Total Bilirubin (0.0-1.0) mg/dL Direct Bilirubin (0.0-0.5) mg/dL AST (5-37) U/L ALT (0-40) U/L Alkaline Phosphatase (39-117) U/L Troponin I High Sens 15.8 (<3.5-35.0) ng/L C-Reactive Protein (< or = 0.50) mg/dL B-Natriuretic Peptide (<100) pg/mL Total Protein (6.5-8.0) g/dL Albumin (3.5-5.0) g/dL Procalcitonin 0.07 ng/mL COVID-19 (DEE) Positive A (Negative) COVID-19 Clin Com See Note 06/05/21 06/05/21 Range/Units 13:51 14:02 WBC (4.8-10.8) X10*3/uL RBC (4.60-5.80) X10*6/uL Hgb (14.0-18.0) g/dl Hct (42.0-52.0) % MCV (80.0-98.0) fL MCH (27.0-33.0) pg MCHC (31.0-36.0) g/dl RDW (11.0-16.0) % Plt Count (160-400) X10*3/uL MPV (9.4-12.4) fL Immature Gran % (Auto) (0.0-0.4) % Neut % (Auto) (45-73) % Lymph % (Auto) (20-40) % Runnels % (Auto) (2-11) % Eos % (Auto) (0-4) % Baso % (Auto) (0-2) % Lymph # (Auto) (1.2-4.9) X10*3/uL Runnels # (Auto) (0.1-1.2) X10*3/uL Eos # (Auto) (0.0-0.4) X10*3/uL Baso # (Auto) (0.0-0.2) X10*3/uL Abs Immat Gran (auto) (0.00-0.03) X10*3/uL Absolute Neuts (auto) (2.0-8.3) x10*3/uL Absolute Nucleated RBC (0.0-0.012) X10*3/uL Nucleated RBC % (auto) (0.0-0.2) /100WBC PT (9.9-13.0) SEC INR (0.9-1.1) APTT (24.1-38.0) SEC D-Dimer High Sensitivty NG/ML Sodium (135-145) mmol/L Potassium (3.3-5.1) mmol/L Chloride (96-108) mmol/L Carbon Dioxide (22-29) mmol/L Anion Gap (12-20) BUN (9-16) mg/dL Creatinine (0.5-1.4) mg/dL Estim Creat Clear Calc Estimated GFR POC Glucose 216 H (60-115) mg/dL Random Glucose (60-115) mg/dL Calcium (8.4-10.2) mg/dL Magnesium (1.6-2.6) mg/dL Ferritin (20-250) ng/mL Total Bilirubin (0.0-1.0) mg/dL Direct Bilirubin (0.0-0.5) mg/dL AST (5-37) U/L ALT (0-40) U/L Alkaline Phosphatase (39-117) U/L Troponin I High Sens (<3.5-35.0) ng/L C-Reactive Protein (< or = 0.50) mg/dL B-Natriuretic Peptide 174 H (<100) pg/mL Total Protein (6.5-8.0) g/dL Albumin (3.5-5.0) g/dL Procalcitonin ng/mL COVID-19 (DEE) (Negative) COVID-19 Clin Com ECG Data Attestation: I personally reviewed and interpreted this ECG as follows: ECG interpretation date: 06/05/21 Prior ECG tracings: available for review Interpretation: Normal sinus rhythm with first-degree AV block, heart rate 74 beats per minute, MD interval prolonged to 282 MS, normal QRS, no ST segment elevations or depressions. Critical Care Time Critical Care Time Critical Care Time: No Discharge Plan Discharge Clinical Impression: COVID-19 Patient Disposition: Home, Self-Care Instructions: Covid-19 Viral Syndrome and Novel Coronavirus (ED) Hey/Ath Additional Instructions: You were found to be COVID-19 POSITIVE today. Your chest x-ray and oxygen levels were normal. Rest. Drink plenty of fluids. Do not go out in public for the next 10 days. Take over the counter cold/flu medications as needed for your symptoms. Take Tylenol as needed for fevers and body aches. Follow up with your doctor this week. If you shortness of breath worsens, if you develop difficulty breathing or any other concerning symptom come back to the ER for further evaluation. Prescriptions: No Action carvedilol 12.5 mg tablet 1 tab PO BID RF: 0 torsemide 20 mg tablet 1 tab PO BID RF: 0 clonazepam 0.5 mg tablet 1 tab PO BID PRN (Reason: Anxiety) RF: 0 thiamine HCl (vitamin B1) [Vitamin B-1] 100 mg tablet 1 tab PO DAILY RF: 0 hydralazine 25 mg tablet 12.5 mg PO TID RF: 0 clopidogrel 75 mg tablet 1 tab PO DAILY RF: 0 levothyroxine 100 mcg tablet 1 tab PO DAILY RF: 0 isosorbide mononitrate 60 mg tablet extended release 24 hr 1 tab PO DAILY RF: 0 pantoprazole 40 mg tablet,delayed release (DR/EC) 1 tab PO BID RF: 0 folic acid 1 mg tablet 1 tab PO DAILY RF: 0 gabapentin 100 mg capsule 300 mg PO BID RF: 0 insulin lispro [Humalog KwikPen Insulin] 100 unit/mL insulin pen See Rx Instructions sliding scale dose .ROUTE .COMPLEX RF: 0 rosuvastatin 40 mg tablet 1 tab PO DAILY RF: 0 bupropion HCl 150 mg tablet extended release 24 hr 1 tab PO QAM RF: 0 Januvia 25 mg tablet 1 tab PO DAILY RF: 0 Lantus Solostar U-100 Insulin 100 unit/mL (3 mL) insulin pen 72 unit subcut DAILY RF: 0 pramipexole 0.375 mg tablet extended release 24 hr 0.375 mg PO DAILY RF: 0 potassium chloride 20 mEq tablet extended release 1 tab PO BID RF: 0 Interventions: ED Discharge Assessment Last Done: 06/05/21 15:23 Discharge Date/Time: 06/05/21 15:24
--- NOTE | 2021-06-05 11:58 | PHA.MEDREC ---
Pharmacy Consult ? Medication Reconciliation Pharmacy has completed the medication reconciliation. Spoke with the patients son who helps him fill his med box. I also called [facility] to verify the directions on the insulin. The son states that the provider recently changed the gabapentin dosing from 200 mg BID to 300 mg BID. The Humalog Sliding Scale is as follows: 100-150 14 units 151-200 17 units 201-250 20 units 251-300 23 units >300 25 units
[2021-06-05 14:05] LABS: Glucose, Whole Blood 216 mg/dL (60-115)
[2021-06-05 14:07] LABS: MANUAL DIFF FLAG NO
[2021-06-05 14:12] LABS: Basophils Percent Auto 0.3 % (0-2); Eosinophils Absolute Auto 0.2 X10*3/uL (0.0-0.4); Eosinophils Percent Auto 2.6 % (0-4); Hematocrit 35.9 % (42.0-52.0); Hemoglobin 10.5 g/dl (14.0-18.0); Imm Gran Abs Auto 0.02 X10*3/uL (0.00-0.03); Imm Gran Pct Auto 0.3 % (0.0-0.4); Lymphocytes Percent Auto 17.2 % (20-40); Mean Corpuscular HGB Conc 29.2 g/dl (31.0-36.0); Mean Corpuscular Hemoglobin 20.5 pg (27.0-33.0); Mean Corpuscular Volume 70.1 fL (80.0-98.0); Mean Platelet Volume 10.3 fL (9.4-12.4); Monocytes Absolute Auto 0.7 X10*3/uL (0.1-1.2); Monocytes Percent Auto 10.9 % (2-11); Neutrophils Absolute Auto 4.2 x10*3/uL (2.0-8.3); Neutrophils Percent Auto 68.7 % (45-73); Platelet Count 220 X10*3/uL (160-400); Red Blood Count 5.12 X10*6/uL (4.60-5.80); White Blood Count 6.1 X10*3/uL (4.8-10.8)
[2021-06-05 14:18] LABS: INTERNATIONAL NORM RATIO 1.2 (0.9-1.1); Prothrombin Time 14.1 SEC (9.9-13.0)
[2021-06-05 14:20] LABS: D Dimer High Sensitivity 216 NG/ML
[2021-06-05 14:26] LABS: COVID-19 Test Positive (Negative); IDNOW Serial# 9DD0AD1C
[2021-06-05 14:38] LABS: Alanine Aminotransferase 17 U/L (0-40); Albumin Level 3.9 g/dL (3.5-5.0); Alkaline Phosphatase 92 U/L (39-117); Anion Gap 14 (12-20); Aspartate Amino Transferase 22 U/L (5-37); Bilirubin Direct < 0.2 mg/dL (0.0-0.5); Bilirubin Total 0.2 mg/dL (0.0-1.0); Blood Urea Nitrogen 33 mg/dL (9-16); C Reactive Protein 2.58 mg/dL (< or = 0.50); Calcium 9.2 mg/dL (8.4-10.2); Carbon Dioxide 29 mmol/L (22-29); Chloride 100 mmol/L (96-108); Creatinine Clr Calc Pharmacy 32.3; Estimated Glomerular Filt Rate 29; Glucose Random 247 mg/dL (60-115); Magnesium 1.9 mg/dL (1.6-2.6); Sodium 138 mmol/L (135-145); Total Protein 7.5 g/dL (6.5-8.0)
[2021-06-05 14:43] LABS: Troponin-I High Sensitivity 15.8 ng/L (<3.5-35.0)
[2021-06-05 14:44] LABS: B Type Natriuretic Peptide 174 pg/mL (<100)
[2021-06-05 14:58] LABS: Ferritin 130 ng/mL (20-250)
[2021-06-05 15:05] LABS: Procalcitonin 0.07 ng/mL
== END 2021-06-05 15:24 | disposition home or self-care (01) ==
PROVIDERS: Physician Assistant; Emergency Provider Emergency Medicine
DX: U07.1 COVID-19 (principal); R06.02 Shortness of breath; R05.9 Cough, unspecified; I25.10 Atherosclerotic heart disease of native coronary artery without angina pectoris; E11.9 Type 2 diabetes mellitus without complications; R50.9 Fever, unspecified; Z79.899 Other long term (current) drug therapy; Z79.4 Long term (current) use of insulin
CPT/HCPCS: 36415; 71046; 80048; 80076; 82728; 82947; 83735; 83880; 84145; 84484; 85025; 85379; 85610; 85730; 86140; 87635; 93005; 99283

== ENCOUNTER 2021-07-17 01:39 | Emergency (ER) | payer MEDICARE, SELFPAY ==
[2021-06-28 07:32] VITALS: BMI 34.3
[2021-07-17 01:46] VITALS: BP 128/70; PULSE 89; RESP 20; TEMP 36.6; O2SAT 98; BMI 34.1
--- NOTE | 2021-07-17 02:14 | ED_ITS ---
HPI - General Adult General Chief complaint: General Medical Stated complaint: restless feet, general medical Time Seen by Provider: 07/17/21 02:02 Source: patient Mode of arrival: ambulatory Limitations: no limitations History of Present Illness HPI narrative: Patient comes to the emergency room complaining of restless legs. Patient states that he has been diagnosed previously with restless leg syndrome. Rosenda nt usually takes pramipexole 0.375 mg extended release, patient ran out of medications 3 days ago. Patient's PCP sent a prescription to the patient's pharmacy, however the pharmacy states that in a 60 mi radius there is no pramipexole available. Patient states he took 2 klonopin tablets and 2 Gabapentin tablets, but patient states that the sensation is unbearable and can not sleep Related Data Home Medications Medication Instructions Recorded Confirmed bupropion HCl 150 mg 24 hr tablet, 1 tab PO QAM 06/05/21 06/05/21 extended release carvedilol 12.5 mg tablet 1 tab PO BID 06/05/21 06/05/21 clonazepam 0.5 mg tablet 1 tab PO BID PRN 06/05/21 06/05/21 clopidogrel 75 mg tablet 1 tab PO DAILY 06/05/21 06/05/21 folic acid 1 mg tablet 1 tab PO DAILY 06/05/21 06/05/21 gabapentin 100 mg capsule 300 mg PO BID 06/05/21 06/05/21 hydralazine 25 mg tablet 12.5 mg PO TID 06/05/21 06/05/21 insulin glargine 100 unit/mL (3 72 unit SUBCUT DAILY 06/05/21 06/05/21 mL) subcutaneous pen (Lantus Solostar U-100 Insulin) insulin lispro 100 unit/mL See Rx Instructions .ROUTE .COMPLEX 06/05/21 06/05/21 subcutaneous pen (Humalog KwikPen (U-100) Insulin) isosorbide mononitrate 60 mg 1 tab PO DAILY 06/05/21 06/05/21 tablet,extended release 24 hr levothyroxine 100 mcg tablet 1 tab PO DAILY 06/05/21 06/05/21 pantoprazole 40 mg tablet,delayed 1 tab PO BID 06/05/21 06/05/21 release potassium chloride 20 mEq 1 tab PO BID 06/05/21 06/05/21 tablet,extended release pramipexole 0.375 mg 0.375 mg PO DAILY 06/05/21 06/05/21 tablet,extended release 24 hr rosuvastatin 40 mg tablet 1 tab PO DAILY 06/05/21 06/05/21 sitagliptin 25 mg tablet (Januvia) 1 tab PO DAILY 06/05/21 06/05/21 thiamine HCl (vitamin B1) 100 mg 1 tab PO DAILY 06/05/21 06/05/21 tablet (Vitamin B-1) torsemide 20 mg tablet 1 tab PO BID 06/05/21 06/05/21 Previous Rx's Medication Instructions Recorded ropinirole 0.25 mg tablet 0.25 mg PO BEDTIME #20 tab 07/17/21 Allergies Allergy/AdvReac Type Severity Reaction Status Date / Time No Known Allergies Allergy Unknown Verified 07/17/21 01:45 Review of Systems Review of Systems: Constitutional : No Weight loss, No Fever, No Chills, No Night Sweats, No Fatigue, No Malaise ENT/Mouth : No Hearing loss, No Ear Pain, No Nasal Congestion, No Sinus Pain, No Hoarseness, No sore throat, No Rhinorrhea, No Swallowing Difficulty Eyes: No Eye Pain, No Swelling, No Redness, No Foreign Body, No Discharge, No Vision Changes Cardiovascular : No Chest Pain, No SOB, No Dyspnea on Exertion, No Orthopnea, No Edema, No Palpitations Respiratory : No Cough, No Sputum, No Wheezing, No Smoke Exposure, No Dyspnea Gastrointestinal : No Nausea, No Vomiting, No Diarrhea, No Constipation, No abdominal Pain, No Hematochezia, No Melena Genitourinary : no irregular bleeding, No Dysuria, No Urinary Frequency, No Hematuria, No Urinary Incontinence, No Urgency, No Flank Pain, No Urinary Flow Changes, No Hesitancy Musculoskeletal : Complaining of restless legs, No joint pain, No Myalgias, No Joint Swelling Skin : No Skin Lesions, No rash Neuro : No Weakness, No Numbness, No Paresthesias, No Loss of Consciousness, No Dizziness, No Headache Psych : No Anxiety/Panic, No Depression, No SI/HI/AH/VH, No Social Issues, Heme/Lymph: No Bruising, No Bleeding,No Lymphadenopathy Endocrine : No Polyuria, No Polydipsia, No Temperature Intolerance [facility] Past Medical History Medical History (Updated 02/27/22 @ 02:25 by Lavinia Paez MD) Anemia Diabetes Myocardial infarct Restless leg syndrome Social History Social History Alcohol intake: never Patient Tobacco Use Status: Former Tobacco user Tobacco use type: Cigarette Cigarette Packs Per Day: 0.5 Years Smoked: 10 Advance Directives: No Advance Directives Information Provided: Yes Physical Exam ED Vital Signs: Vital Signs - 24 hr 07/17/21 01:46 Temperature 97.8 F Pulse Rate 89 Respiratory Rate 20 Blood Pressure 128/70 Pulse Oximetry 98 BMI result Body Mass Index 34.1 Const Other: Appearance: Alert. Oriented X3. No acute distress. Eyes: Pupils equal, round and reactive to light. ENT: Pharynx normal. Neck: Normal inspection. Neck supple. No lymph nodes noted. No crepitus CVS: Normal heart rate and rhythm. Pulses normal. Normal S1 and S2 Respiratory: No respiratory distress. Breath sounds normal. No Wheezing. No rales Abdomen: Soft and nontender. No rigidity. No distention. good BS x4 Skin: Skin warm and dry. Normal skin color. Normal skin turgor. Extremities: No lower extremity edema. No Lacerations. No Rash Neuro: Oriented X 3. No motor deficit. No sensory deficit. Moving all extermities. No slurred speech. Course Course Course Narrative: We called [facility], they do not have pramipexole, but they do have Ropinerole. We do have pramipexole in the ED, patient was given his home dose. Discharge Plan Discharge Clinical Impression: Restless leg syndrome Patient Disposition: Home, Self-Care Instructions: Restless Legs Syndrome (ED) Additional Instructions: Please follow-up with your primary care physician tomorrow. If you have any worsening or new symptoms, please return to the emergency room or call 911 Prescriptions: New ropinirole 0.25 mg tablet 0.25 mg PO BEDTIME Qty: 20 0RF Rx Instructions: administer 1-3 hours before bedtime No Action carvedilol 12.5 mg tablet 1 tab PO BID 0RF torsemide 20 mg tablet 1 tab PO BID 0RF clonazepam 0.5 mg tablet 1 tab PO BID PRN (Reason: Anxiety) 0RF thiamine HCl (vitamin B1) [Vitamin B-1] 100 mg tablet 1 tab PO DAILY 0RF hydralazine 25 mg tablet 12.5 mg PO TID 0RF clopidogrel 75 mg tablet 1 tab PO DAILY 0RF levothyroxine 100 mcg tablet 1 tab PO DAILY 0RF isosorbide mononitrate 60 mg tablet extended release 24 hr 1 tab PO DAILY 0RF pantoprazole 40 mg tablet,delayed release (DR/EC) 1 tab PO BID 0RF folic acid 1 mg tablet 1 tab PO DAILY 0RF gabapentin 100 mg capsule 300 mg PO BID 0RF insulin lispro [Humalog KwikPen Insulin] 100 unit/mL insulin pen See Rx Instructions sliding scale dose .ROUTE .COMPLEX 0RF Rx Instructions: Subcutaneous 3 times a day before meals: Sliding Scale: 100-150 14 UNITS, 151-200 17 UNITS, 201-250 20 UNITS, 251-300 23 UNITS, >300 25 UNITS rosuvastatin 40 mg tablet 1 tab PO DAILY 0RF bupropion HCl 150 mg tablet extended release 24 hr 1 tab PO QAM 0RF Januvia 25 mg tablet 1 tab PO DAILY 0RF Lantus Solostar U-100 Insulin 100 unit/mL (3 mL) insulin pen 72 unit subcut DAILY 0RF pramipexole 0.375 mg tablet extended release 24 hr 0.375 mg PO DAILY 0RF potassium chloride 20 mEq tablet extended release 1 tab PO BID 0RF
[2021-07-17] MEDS: Pramipexole Di-HCL 0.25 MG TABLET 0.375 MG PO (02:19)
== END 2021-07-17 02:34 | disposition home or self-care (01) ==
PROVIDERS: Emergency Provider Emergency Medicine
DX: G25.81 Restless legs syndrome (principal); Z79.899 Other long term (current) drug therapy; Z87.891 Personal history of nicotine dependence
CPT/HCPCS: 99283